=== PATIENT | female | born 1960 | race African-American/Black ===

== ENCOUNTER 2018-05-11 09:36 | Inpatient (IN) | payer SELFPAY ==
[~2018-05-11] VITALS: Ht 165.1 cm; Wt 62.6 kg
[2018-05-11] VITALS (26 sets, daily range): BP systolic 94–165; BP diastolic 52–89
[2018-05-11] MEDS ORDERED: ASPIRIN 81MG TABLET PO STA (09:46)
[2018-05-11] MEDS ORDERED: SODIUM CHLORIDE 0.9% 1,000 ML IV ONE ×2 (09:46)
[2018-05-11] MEDS ORDERED: INSULIN REGULAR (HUMULIN R) 300UNITS/3ML SUBCUT ONE (10:00)
[2018-05-11 10:27] LABS: BG BASE EXCESS -26.5 mmol/L (-2.0-2.0); BG CARBOXYHEMOGLOBIN 0.3 % (0.5-1.5); BG DEOXYHEMOGLOBIN 1.3 % (0.0-5.0); BG FRACTION INSPIRED OXYGEN 28; BG HCO3 ACT 2.5 mmol/L (22.0-26.0); BG METHEMOGLOBIN 0.2 % (0.0-1.5); BG OXYGEN SATURATION 98.7 % (92.0-98.5); BG OXYHEMOGLOBIN 98.2 % (94.0-97.0); BG PCO2 9.8 mmHg (35.0-45.0); BG PH 7.018 (7.350-7.450); BG PO2 159.6 mmHg (75.0-100.0); BG SAMPLE SITE RIGHT BRACHIAL; BG TOTAL HEMOGLOBIN 14.5 g/dL (12.0-18.0); BG VENT MODE NASAL CANNULA
[2018-05-11 10:31] LABS: BASOPHILS % 0.2 % (0.0-2.0); EOSINOPHILS % 0.1 % (0.0-5.0); HEMOGLOBIN. 13.8 g/dL (12.0-16.0); LYMPHOCYTES % 23.9 % (20.0-50.0); MEAN CORPUSCULAR HEMOGLOBIN 37.6 pg (28.0-32.0); MEAN CORPUSCULAR VOLUME 119.7 fL (81.0-99.0); MEAN PLATELET VOLUME 9.2 fl (7.4-10.4); MONOCYTES % 1.8 % (2.0-8.0); PLATELET 220 x1000/uL (130-400); RED BLOOD CELL COUNT 3.67 mill/uL (4.2-5.4)
[2018-05-11 10:39] LABS: CHLORIDE 98 mEq/L (98-107)
[2018-05-11 10:50] LABS: D-DIMER 0.47 mg/L FEU (<0.50); INR 1.1; PARTIAL THROMBOPLASTIN TIME 26.2 sec (23.4-31.0); PROTHROMBIN TIME 11.2 sec (9.4-11.6)
[2018-05-11] MEDS ORDERED: INSULIN REGULAR (DRIP) 100 UNITS in SODIUM CHLORIDE 0.9% 100 ML IV ONE (11:00)
[2018-05-11 11:07] LABS: CLARITY URINE CLOUDY (CLEAR); COLOR URINE YELLOW (YELLOW); KETONES URINE 4+ (NEGATIVE); LEUKOCYTE ESTERASE URINE NEGATIVE (NEGATIVE); NITRITE URINE NEGATIVE (NEGATIVE); OCCULT BLOOD URINE TRACE (NEGATIVE); PROTEIN URINE 1+ (NEGATIVE); SPECIFIC GRAVITY URINE 1.025 (1.005-1.030); UROBILINOGEN URINE 0.2 E.U./dL (0.2-1.0)
[2018-05-11] MEDS ORDERED: INSULIN REGULAR (DRIP) 100 UNITS in SODIUM CHLORIDE 0.9% 100 ML IV SCH ×2 (11:15→14:26)
[2018-05-11 11:18] LABS: BETA HYDROXYBUTYRATE 12.3 mMol/L (0.0-0.3)
[2018-05-11 11:38] LABS: PLATELET ESTIMATE NORMAL
[2018-05-11] MEDS ORDERED: ONDANSETRON HCL 4MG/2ML VIAL IV PRN (14:30)
[2018-05-11] MEDS ORDERED: DEXTROSE 50% WATER 50ML SYRINGE IV PRN ×2 (14:30)
[2018-05-11] MEDS ORDERED: SODIUM CHLORIDE 0.9% 1,000 ML IV SCH (14:30)
[2018-05-11] MEDS ORDERED: CLONIDINE 0.1MG TABLET PO PRN (14:30)
[2018-05-11] MEDS: BLOOD SUGAR DIAGNOSTIC STRIP TEST SCH ×10 (14:51→23:00)
[2018-05-11] MEDS ORDERED: GUAIFENESIN 200MG/10ML SUGAR FREE UDC PO PRN (15:15)
[2018-05-11] MEDS ORDERED: LORAZEPAM 0.5MG TABLET PO PRN (15:15)
[2018-05-11] MEDS ORDERED: ACETAMINOPHEN 325MG TABLET PO PRN (15:15)
[2018-05-11] MEDS ORDERED: NA PHOS,M-B/NA PHOS,DI-BA ENEMA 118ML PR PRN (15:15)
[2018-05-11] MEDS ORDERED: MAGNESIUM/ALUMINUM HYDROXIDE/SIMETHICONE 30ML UDC PO PRN (15:15)
[2018-05-11] MEDS ORDERED: KETOROLAC 15MG/ML VIAL IV PRN (15:15)
[2018-05-11] MEDS ORDERED: DOCUSATE SODIUM 100MG CAPSULE PO PRN (15:15)
[2018-05-11] MEDS ORDERED: IPRATROPIUM/ALBUTEROL 0.5-3(2.5)MG/3ML NEB INH PRN (15:15)
[2018-05-11] MEDS ORDERED: ZOLPIDEM TARTRATE 5MG TABLET PO PRN (15:15)
[2018-05-11] MEDS ORDERED: KETOROLAC 30MG/ML VIAL IV PRN (15:15)
[2018-05-11] MEDS ORDERED: DEXT 5%/0.9% NACL KCL 20MEQ/L 1,000 ML IV SCH (16:15)
[2018-05-11 16:30] LABS: CHLORIDE 117 mEq/L (98-107)
[2018-05-11 16:36] LABS: PHOSPHORUS 2.6 mg/dL (2.5-4.9)
[2018-05-11 16:37] LABS: LDL CHOLESTEROL 156 mg/dL (5-100)
[2018-05-11 16:38] LABS: HDL CHOLESTEROL 49 mg/dL (40-59)
[2018-05-11] MEDS: AMLODIPINE 10MG TABLET PO SCH (17:17)
[2018-05-11] MEDS: DEXT 5%/0.9% NACL 1,000 ML IV SCH (17:17)
[2018-05-11] MEDS: ENOXAPARIN 40MG/0.4ML SYR SUBCUT SCH (17:18)
[2018-05-11 19:07] LABS: VITAMIN B12 SERUM < 60 pg/mL (211-911)
[2018-05-11 19:08] LABS: FOLIC ACID (FOLATE) SERUM > 20.00 ng/mL (>5.38)
[2018-05-11] MEDS: LISINOPRIL 20MG TABLET PO SCH (21:50)
[2018-05-11] MEDS: FAMOTIDINE 20MG TABLET PO SCH (21:50)
[2018-05-12] VITALS (48 sets, daily range): BP systolic 80–155; BP diastolic 43–83
[2018-05-12] MEDS: DEXT 5%/0.9% NACL 1,000 ML IV SCH ×3 (00:29→14:38)
[2018-05-12] MEDS: BLOOD SUGAR DIAGNOSTIC STRIP TEST SCH ×17 (00:30→21:00)
[2018-05-12 05:21] LABS: CHLORIDE 118 mEq/L (98-107)
[2018-05-12 05:28] LABS: PHOSPHORUS 1.8 mg/dL (2.5-4.9)
[2018-05-12] MEDS: FAMOTIDINE 20MG TABLET PO SCH ×2 (08:19→22:46)
[2018-05-12 08:25] LABS: BASOPHILS % 0.2 % (0.0-2.0); EOSINOPHILS % 0.2 % (0.0-5.0); HEMATOCRIT. 35.9 % (36.0-48.0); HEMOGLOBIN. 11.9 g/dL (12.0-16.0); LYMPHOCYTES % 31.6 % (20.0-50.0); MEAN CORPUSCULAR HEMOGLOBIN 37.2 pg (28.0-32.0); MEAN CORPUSCULAR VOLUME 111.9 fL (81.0-99.0); MEAN PLATELET VOLUME 8.5 fl (7.4-10.4); MONOCYTES % 3.5 % (2.0-8.0); NEUTROPHILS % 64.5 % (40.0-76.0); PLATELET 152 x1000/uL (130-400); RED CELL DISTRIBUTION WIDTH 16.2 % (11.6-14.6)
[2018-05-12] MEDS: AMLODIPINE 10MG TABLET PO SCH (09:00)
[2018-05-12] MEDS: LISINOPRIL 20MG TABLET PO SCH ×2 (09:00→22:46)
[2018-05-12] MEDS ORDERED: POTASSIUM PHOS,M-BASIC-D-BASIC 20 MMOL in DEXT 5% WATER 243.3333 ML IV NR ×2 (12:00→20:00)
[2018-05-12 15:19] LABS: *AMPHETAMINES SCREEN URINE NEGATIVE (NEGATIVE)
[2018-05-12 15:20] LABS: *BARBITURATES SCREEN URINE NEGATIVE (NEGATIVE); *BENZODIAZEPINES SCREEN URINE NEGATIVE (NEGATIVE); *COCAINE SCREEN URINE NEGATIVE (NEGATIVE); METHADONE URINE SCREEN NEGATIVE (NEGATIVE); OPIATES URINE SCREEN NEGATIVE (NEGATIVE); PHENCYCLIDINE URINE SCREEN NEGATIVE (NEGATIVE)
[2018-05-12 15:21] LABS: CANNABINOID URINE SCREEN NEGATIVE (NEGATIVE)
[2018-05-12 15:42] LABS: CHLORIDE 120 mEq/L (98-107)
[2018-05-12 15:47] LABS: PHOSPHORUS 2.4 mg/dL (2.5-4.9)
[2018-05-12] MEDS: INSULIN LISPRO 100 UNITS/ML SUBCUT SCH ×3 (17:00→21:00)
[2018-05-12] MEDS: ENOXAPARIN 40MG/0.4ML SYR SUBCUT SCH (17:29)
[2018-05-12] MEDS ORDERED: INSULIN GLARGINE UD 100 UNITS/ML SYR SUBCUT SCH (18:00)
[2018-05-12] MEDS: DEXTROSE 50% WATER 50ML SYRINGE IV PRN (23:22)
[2018-05-13] VITALS (20 sets, daily range): BP systolic 98–150; BP diastolic 57–93
[2018-05-13] MEDS: DEXTROSE 50% WATER 50ML SYRINGE IV PRN (04:46)
[2018-05-13 05:27] LABS: CHLORIDE 115 mEq/L (98-107)
[2018-05-13 05:33] LABS: PHOSPHORUS 3.2 mg/dL (2.5-4.9)
[2018-05-13] MEDS: INSULIN LISPRO 100 UNITS/ML SUBCUT SCH ×2 (06:30→07:00)
[2018-05-13] MEDS: BLOOD SUGAR DIAGNOSTIC STRIP TEST SCH (06:55)
[2018-05-13] MEDS ORDERED: POTASSIUM CHLORIDE 20MEQ/PACKET PO NR (09:15)
[2018-05-13] MEDS: FAMOTIDINE 20MG TABLET PO SCH (09:28)
[2018-05-13] MEDS: LISINOPRIL 20MG TABLET PO SCH (09:28)
[2018-05-13] MEDS: AMLODIPINE 10MG TABLET PO SCH (09:28)
== END 2018-05-13 11:50 | disposition home or self-care (01) | DRG 420 ==
LOC: ER 09:36 → MICUSO 11:35 → ENRESERV 12:53
PROVIDERS: ADMIT Internal Medicine; ATTEND Internal Medicine
DX: E11.10 Type 2 diabetes mellitus with ketoacidosis without coma (principal); E87.5 Hyperkalemia; I10 Essential (primary) hypertension; E87.1 Hypo-osmolality and hyponatremia; Z79.4 Long term (current) use of insulin
CPT/HCPCS: 36415; 36600; 71045; 80048; 80053; 80061; 80305; 81003; 82010; 82375; 82607; 82746; 82805; 82962; 83036; 84100; 84484; 85025; 85379; 85610; 85730; 93005; J1650; J1815; J2405; J3490; J7030; J7042; J7050; J7060